=== PATIENT | male | born 1995 | race Hispanic/Latino ===

== ENCOUNTER 2025-06-21 14:41 | Observation (INO) | payer OTHER ==
[~2025-06-21] VITALS: Ht 188 cm; Wt 96.7 kg
[2025-06-21 15:51] LABS: BASO # 0.1 10^3/uL (0.0-0.2); BASO % 0.9 % (0.0-1.0); EOS # 0.1 10^3/uL (0.0-0.5); EOS % 0.9 % (0.0-3.0); LYMPH # 1.6 10^3/uL (1.5-5.0); LYMPH % 24.8 % (24.0-44.0); MONO # 0.6 10^3/uL (0.0-0.8); MONO % 8.4 % (2.0-8.0); NEUTROPHILS # 4.2 10^3/uL (1.5-8.5); NEUTROPHILS % 64.7 % (36.0-66.0); PLATELET COUNT, AUTOMATED 219 10^3/uL (150-450)
[2025-06-21 16:47] LABS: ALT/SGPT 19.0 U/L (7.0-40); AST/SGOT 21.0 U/L (<34); CALCIUM LEVEL 9.7 MG/DL (8.5-10.1); CARBON DIOXIDE LEVEL 30.0 MMOL/L (20-31); CHLORIDE LEVEL 105.0 MMOL/L (98-107); CREATININE FOR GFR 1.29 MG/DL (0.70-1.30); GLOMERULAR FILTRATION RATE 77.9 (>60); POTASSIUM SERUM 4.5 MMOL/L (3.5-5.1); SODIUM LEVEL 143.0 MMOL/L (136-145)
[2025-06-21 17:20] LABS: KETONE, URINE AUTO RFX NEGATIVE (NEGATIVE); LEUKOCYTE ESTERASE UR AUTO RFX NEGATIVE (NEGATIVE); MUCUS, URINE RFX SMALL (NEGATIVE); NITRITE, URINE AUTO RFX NEGATIVE (NEGATIVE); RBC, URINE AUTO RFX TNTC /HPF (0-3); SQUAM EPITHELIAL CELL UR AURFX 0 /HPF (0-6); WBC, URINE AUTO RFX 0 /HPF (0-3); YEAST LIKE CELL URINE AUTO RFX MODERATE
[2025-06-21] MEDS: KETOROLAC 30 MG/ML 1 ML VIAL IV ONE (17:21)
[2025-06-21] MEDS: NS (Normal Saline) 0.9% 1,000 ML IV ONE (17:21)
[2025-06-21] MEDS ORDERED: ISOVUE-370 76% 100 ML VIAL As Ordered ONE (17:24)
[2025-06-21] MEDS: MORPHINE 4 MG/ML 1 ML VIAL IV ONE (18:59)
[2025-06-21] MEDS ORDERED: KETO-204 PO (20:00)
[2025-06-21] MEDS ORDERED: TAMS-18 PO (20:00)
[2025-06-21] MEDS: TAMSULOSIN 0.4 MG CAP PO ONE (20:03)
[2025-06-21] MEDS ORDERED: HOME MED LIST COMPLETE! XX SCH (20:40)
[2025-06-21] MEDS ORDERED: KETOROLAC 30 MG/ML 1 ML VIAL IV PRN (21:10)
[2025-06-21] MEDS ORDERED: ACETAMINOPHEN 325 MG TAB PO PRN (21:10)
[2025-06-21] MEDS: PANTOPRAZOLE 40MG TAB PO SCH (21:47)
[2025-06-21] MEDS: NS (Normal Saline) 0.9% 1,000 ML IV SCH (21:47)
[2025-06-21 22:05] VITALS: BP 146/80; TEMP 98.6; O2SAT 95
[2025-06-22 03:42] VITALS: BP 128/60; TEMP 98.1; O2SAT 95
[2025-06-22 09:39] LABS: PLATELET COUNT, AUTOMATED 205 10^3/uL (150-450)
[2025-06-22 09:59] LABS: CALCIUM LEVEL 8.6 MG/DL (8.5-10.1); CARBON DIOXIDE LEVEL 26.0 MMOL/L (20-31); CHLORIDE LEVEL 110.0 MMOL/L (98-107); CREATININE FOR GFR 1.15 MG/DL (0.70-1.30); GLOMERULAR FILTRATION RATE 89.5 (>60); POTASSIUM SERUM 4.1 MMOL/L (3.5-5.1); SODIUM LEVEL 144.0 MMOL/L (136-145)
[2025-06-22] MEDS: NS 500 ML IV ONE (11:37)
[2025-06-22 12:00] VITALS: BP 122/75; TEMP 98.3; O2SAT 97
[2025-06-22 20:00] VITALS: BP 139/83; TEMP 97.9; O2SAT 98
[2025-06-22] MEDS: TAMSULOSIN 0.4 MG CAP PO SCH (20:27)
[2025-06-23 04:00] VITALS: BP 137/66; TEMP 97.6; O2SAT 96
[2025-06-23] MEDS ORDERED: ONDANSETRON 4MG 2ML VIAL As Ordered ONE (07:56)
[2025-06-23] MEDS ORDERED: dexAMETHasone 4 MG/ML 1 ML VIAL As Ordered ONE (07:56)
[2025-06-23] MEDS ORDERED: LIDOCAINE 2% 100 MG/5 ML SDV (FOR ANES.) As Ordered ONE (07:56)
[2025-06-23] MEDS ORDERED: MIDAZOLAM INJ 2 MG/2 ML VIAL As Ordered ONE (07:56)
[2025-06-23] MEDS ORDERED: ACETAMINOPHEN 1000MG/100ML IV BAG As Ordered ONE (07:59)
[2025-06-23] MEDS: ISOVUE-300 61% 100 ML VIAL As Ordered ONE (08:48)
[2025-06-23] MEDS ORDERED: HYDROMORPHONE HCL 0.5 MG/0.5 ML SYRINGE IV PRN (09:40)
[2025-06-23] MEDS: KETOROLAC 30 MG/ML 1 ML VIAL IV ONE (09:52)
[2025-06-23 10:20] VITALS: BP 130/78; TEMP 97.1; O2SAT 98
[2025-06-23 11:13] VITALS: BP 167/77; TEMP 97.3; O2SAT 98
[2025-06-23 11:54] VITALS: BP 139/73; TEMP 97.5; O2SAT 97
[2025-06-23 12:51] VITALS: BP 128/74; TEMP 97.2; O2SAT 99
[2025-06-23 13:51] VITALS: BP 131/80; TEMP 98; O2SAT 98
[2025-06-23] MEDS ORDERED: OXYB5TAB14 PO (14:20)
[2025-06-23] MEDS ORDERED: IBUP600T42 PO (14:20)
== END 2025-06-23 14:40 | disposition home or self-care (01) ==
LOC: M ED 14:41 → M ED INP 21:10 → M MS4PR 22:02
PROVIDERS: ADMIT Internal Medicine Nephrology; ATTEND Internal Medicine Nephrology
DX: N20.1 Calculus of ureter (principal); Z87.442 Personal history of urinary calculi; Q62.5 Duplication of ureter; Z79.899 Other long term (current) drug therapy; F17.220 Nicotine dependence, chewing tobacco, uncomplicated
CPT/HCPCS: 36415; 52356; 74176; 74177; 74420; 80048; 80076; 81001; 82365; 83690; 85025; 85027; 96361; 96374; 96375; 99285; C1769; C2617; J0131; J0690; J1100; J1885; J2250; J2405; J3010; Q9967